=== PATIENT | male | born 1995 | race Caucasian/White ===

== ENCOUNTER → 2019-10-11 | Outpatient (CLI) | payer SELFPAY ==
--- NOTE | 2019-10-11 11:23 | REP ---
Clinical: Contusion. Technique: AP, lateral, bilateral oblique views of the left ankle. Findings: Soft-tissue swelling. No acute ankle fracture or dislocation is appreciated. Joint spaces and ankle mortise are intact. Oblique view demonstrates soft tissue swelling over the ventral aspect of the midfoot with suspected bony shard suggesting foot fracture at unspecified site. Impression: Swelling. No acute ankle fracture. Bony fragment and overlying soft tissue swelling suggesting fracture of the mid foot. Electronically Signed by Magdy Mclain MD 10/11/2019 11:14 A
--- NOTE | 2019-10-11 11:25 | REP ---
Clinical: Trauma. Technique: AP, lateral, bilateral oblique views of the left foot. Findings: The suspected bony fracture of the midfoot level identified on oblique ankle view is not identifiable on current examination. A subtle nondisplaced fracture of the cuboid bone cannot be excluded. Impression: 1. Possible nondisplaced fracture of the cuboid bone. 2. Bony shard identified on the ankle series suggesting midfoot fracture is not identifiable on current exam. Consider CT for further investigation if necessary. Electronically Signed by Magdy Mclain MD 10/11/2019 11:16 A
== END ==
LOC: M WUC 10:53
PROVIDERS: ATTEND Physician Assistant
DX: S90.02XA Contusion of left ankle, initial encounter (principal); S90.32XA Contusion of left foot, initial encounter; X58.XXXA Exposure to other specified factors, initial encounter; Y92.89 Other specified places as the place of occurrence of the external cause; Y93.9 Activity, unspecified; Y99.9 Unspecified external cause status